=== PATIENT | male | born 1990 | race Caucasian/White ===

== ENCOUNTER 2024-07-06 21:21 | Emergency (ER) | payer OTHER ==
[2024-07-06] MEDS ORDERED: Lidocaine 1% (PF) 30 ML VIAL ONE (21:23)
[2024-07-06] MEDS ORDERED: Sodium Chloride 0.9% 100 ML ONE (21:58)
[2024-07-06] MEDS ORDERED: Boostrix 0.5 ML (Tdap) VIAL (>/=7 yrs of age) ONE (21:58)
[2024-07-06] MEDS ORDERED: CEFAZOLIN 1 GM VIAL ONE (21:58)
[2024-07-06] MEDS ORDERED: Bupivacaine PF 0.5% 30 ML VIAL ONE (22:26)
[2024-07-06] MEDS ORDERED: Morphine 4 MG/ML VIAL ONE (22:26)
[2024-07-06] MEDS ORDERED: Ondansetron PF 4 MG/2 ML Vial ONE (22:26)
== END 2024-07-07 00:25 | disposition short-term general hospital (02) ==
LOC: MADERS 21:21
DX: S67.192A Crushing injury of right middle finger, initial encounter (principal); S61.302A Unspecified open wound of right middle finger with damage to nail, initial encounter; Z89.021 Acquired absence of right finger(s); W23.1XXA Caught, crushed, jammed, or pinched between stationary objects, initial encounter; Z23 Encounter for immunization
CPT/HCPCS: 90471; 90715; 96365; 96375; J0665; J0690; J2270; J2405